=== PATIENT | male | born 1965 | race Caucasian/White ===

== ENCOUNTER 2018-06-02 22:26 | Observation (INO) | payer MEDICAID ==
--- NOTE | 2018-06-02 23:13 | ED PDOC ---
Arrival/HPI - General Chief Complaint: Alcohol Ingestion Time Seen by Provider: 06/02/18 22:35 Historian: Patient, EMS - History of Present Illness Narrative History of Present Illness (Text): 06/02/18 23:12 Deangelo Mann is a 52 year old male, whose past medical history includes hypertension and alcohol abuse, who presents to the Emergency department brought in by EMS for alcohol intoxication. Patient was found outside inebriated and patient admits to drinking alcohol tonight. Patient also reports he fell 3 days ago and sustained an abrasion to his right forehead. Patient denies any other trauma/injury, headache, dizziness, vomiting, or any other complaints. Time/Duration: Other (tonight) Symptom Onset: Gradual Symptom Course: Unchanged Activities at Onset: Light Context: Street Past Medical History - Provider Review Nursing Documentation Reviewed: Yes - Infectious Disease Hx of Infectious Diseases: None - Tetanus Immunization Tetanus Immunization: Unknown - Past Medical History Past Medical History: Unable to Obtain - Cardiac Hx Cardiac Disorders: Yes Hx Hypertension: Yes - Pulmonary Hx Respiratory Disorders: No - Neurological Hx Neurological Disorder: No - HEENT Hx HEENT Disorder: No - Renal Hx Renal Disorder: No - Endocrine/Metabolic Hx Endocrine Disorders: No - Hematological/Oncological Hx Blood Disorders: No - Integumentary Hx Dermatological Disorder: No - Musculoskeletal/Rheumatological Hx Musculoskeletal Disorders: Yes Hx Falls: Yes - Gastrointestinal Hx Gastrointestinal Disorders: No - Genitourinary/Gynecological Hx Genitourinary Disorders: No - Psychiatric Hx Psychophysiologic Disorder: No Hx Substance Use: No - Past Surgical History Past Surgical History: No Previous - Surgical History Hx Cardiac Catheterization: No Hx Coronary Stent: No - Anesthesia Hx Anesthesia: No Hx Anesthesia Reactions: No Hx Malignant Hyperthermia: No - Suicidal Assessment Feels Threatened In Home Enviroment: No Family/Social History - Physician Review Nursing Documentation Reviewed: Yes Family/Social History: Unknown Family HX Smoking Status: Current Some Days Smoker Hx Alcohol Use: Yes Hx Substance Use: No Hx Substance Use Treatment: No Allergies/Home Meds Allergies/Adverse Reactions: Allergies No Known Allergies Allergy (Verified 07/17/15 15:19) Home Medications: Home Meds Medication Instructions Recorded Confirmed Atorvastatin Calcium [Lipitor] 20 mg PO HS 03/08/15 07/17/15 Metoprolol Succinate XL [Toprol XL] 25 mg PO DAILY 03/08/15 07/17/15 Review of Systems - Physician Review All systems were reviewed & negative as marked: Yes - Review of Systems Constitutional: Normal. absent: Fevers Eyes: Normal ENT: Normal Respiratory: Normal. absent: SOB, Cough Cardiovascular: Normal. absent: Chest Pain Gastrointestinal: Normal. absent: Abdominal Pain, Diarrhea, Nausea, Vomiting Genitourinary Male: Normal. absent: Dysuria, Frequency, Hematuria, Urinary Output Changes Musculoskeletal: Normal. absent: Back Pain, Neck Pain Skin: Other (+forehead abrasion) Neurological: Normal. absent: Headache, Dizziness Endocrine: Normal Hemo/Lymphatic: Normal Psychiatric: Normal Physical Exam Vital Signs Reviewed: Yes Temperature: Afebrile Blood Pressure: Normal Pulse: Regular Respiratory Rate: Normal Appearance: Positive for: Well-Appearing, Non-Toxic, Comfortable Pain Distress: None Mental Status: Positive for: Alert and Oriented X 3 - Systems Exam Head: Present: Normocephalic, Contusion (Contusion to right forehead), Abrasion (Abrasion to right forehead) Pupils: Present: PERRL Extroacular Muscles: Present: EOMI Conjunctiva: Present: Normal Mouth: Present: Moist Mucous Membranes Neck: Present: Normal Range of Motion Respiratory/Chest: Present: Clear to Auscultation, Good Air Exchange. No: Respiratory Distress, Accessory Muscle Use Cardiovascular: Present: Regular Rate and Rhythm, Normal S1, S2. No: Murmurs Abdomen: No: Tenderness, Distention, Peritoneal Signs Back: Present: Normal Inspection Upper Extremity: Present: Normal Inspection. No: Cyanosis, Edema Lower Extremity: Present: Normal Inspection. No: Edema Neurological: Present: GCS=15, CN II-XII Intact, Speech Normal Skin: Present: Warm, Dry, Normal Color. No: Rashes Psychiatric: Present: Alert, Oriented x 3, Normal Insight, Normal Concentration Medical Decision Making ED Course and Treatment: 06/02/18 23:12 Impression: 52 year old male brought in by EMS for alcohol intoxication. Plan: -- CT Head w/o contrast -- Reassess and disposition Prior Visits: Notes and results from previous visits were reviewed. Progress Notes: 06/03/18 01:57 CT Head reviewed, shows: Comparison: 03/06/2015. Normal size of the ventricles and extra-axial spaces for the patient's age. Normal white matter tracts of the supratentorial brain. Normal basal ganglia and thalami. Normal brainstem. Normal cerebellum. There is no demonstrated extra-axial, intraparenchymal, or intraventricular hemorrhage. There are no findings of an acute ischemic infarction. Normal calvarium. There is no demonstrated fracture. Normal soft tissue structures. Mild chronic mucosal inflammatory changes of the ethmoid air cells. Normal remaining visualized paranasal sinuses. Right periorbital soft tissue contusion. IMPRESSION: Normal unenhanced CT scan of the brain. Electronically signed on Jun 03, 2018 1:45:07 AM EST by: Elie Garza M.D., Certified by ABR, MSK, Neuroradiology 06/03/18 02:22 Pt now complaining of abdominal discomfort. Labs, lipase, IV fluids, and Pepcid. 06/03/18 03:42 Pt exhibiting tremors/signs of early withdrawal. CIWA score: 4. Case discussed with Dr. Diaz and medical staff assistant, who agree with plan. Pt will go to telemetry observation for alcohol withdrawal syndrome under the hospitalist service. 06/03/18 04:45 Reviewed EKG, sinus tachycardia at [address]-segment elevations or dep ressions, no T-wave inversions, normal intervals. - Lab Interpretations I have reviewed the lab results: Yes - RAD Interpretation Shelving Supervisor: Radiologist - EKG Interpretation Interpreted by ED Physician: Yes Type: 12 lead EKG - Scribe Statement The provider has reviewed the documentation as recorded by the Dalila Ga Provider Scribe Attestation: All medical record entries made by the Scribe were at my direction and personally dictated by me. I have reviewed the chart and agree that the record accurately reflects my personal performance of the history, physical exam, medical decision making, and the department course for this patient. I have also personally directed, reviewed, and agree with the discharge instructions and disposition. Disposition/Present on Arrival - Present on Arrival Any Indicators Present on Arrival: No History of DVT/PE: No History of Uncontrolled Diabetes: No Urinary Catheter: No History of Decub. Ulcer: No History Surgical Site Infection Following: None - Disposition Have Diagnosis and Disposition been Completed?: Yes Diagnosis: Alcohol withdrawal Disposition: HOSPITALIZED Disposition Time: 03:49 Patient Problems: Current Active Problems Problem Status Onset Alcohol withdrawal Acute Condition: STABLE
[2018-06-03] MEDS ORDERED: Sodium Chloride 0.9% 1,000 ML IV STA (02:22)
[2018-06-03 02:48] LABS: ALB/GLOB RATIO 1.2 (1.1-1.8); ALBUMIN 4.3 g/dL (3.0-4.8); ALT/SGPT 46 U/L (7-56); AST/SGOT 86 U/L (17-59); BLOOD UREA NITROGEN 8 mg/dL (7-21); CALCIUM 8.7 mg/dL (8.4-10.5); GFR NON-AFRICAN AMERICAN > 60; LIPASE 113 U/L (23-300)
[2018-06-03 03:02] LABS: MEAN CELL VOLUME 87.2 fl (80.0-105.0); MEAN CORPUSCULAR HEMOGLOBIN 30.6 pg (25.0-35.0); MEAN CORPUSCULAR HGB CONC 35.1 g/dl (31.0-37.0); MEAN PLATELET VOLUME 9.6 fl (7.0-11.0); RBC 5.23 10^6/uL (3.5-6.1); WHITE BLOOD COUNT 11.1 10^3/uL (4.5-11.0)
[2018-06-03] MEDS ORDERED: Multivitamin (MVI) 10 ML, Thiamine 100 MG, Folic Acid 1 MG in Sodium Chloride 0.9% 1,00... IV ONE (04:20)
--- NOTE | 2018-06-03 04:25 | CP.PCM.HP ---
<ToanHui delongd - Last Filed: 06/03/18 07:23> History of Present Illness - History of Present Illness History of Present Illness: Daniel Joya, PGY-1 Medicine H&P Note for Dr. Diaz: CC: Etoh abuse Pt is a 52 yo M with pmhx of HTN, HLD and EtOH abuse was BIBA to the ED due to etOH intoxication. Pt states that he drank 6 cans of beer today due to an argument that he had with his . Pt also admits to having abdominal pain which started yesterday. He reports that at the worst, the pain was an 8/10 in intensity located diffusely in the lower abdomen, which has now completely resolved. Pt also reports that about 3 days ago he fell and scraped his R forearm on the ground when he fell due to his intoxication. He denies any other trauma or head He currently states that he is not having any fevers, chills, lightheadedness, dizziness, chest pain, SOB, cough, abd pain, dysuria or freque ncy. He does admit to headache, nausea and vomiting. Pmhx: HTN, HLD and EtOH abuse Pshx: Denies All: NKDA Social: 1/2ppd, denies drinking everday and states it only happens when he fights with , denies illicit drug use Fam: Non-contributory Pmd: oRbert Pharm: [facility] [place] Present on Admission - Present on Admission Any Indicators Present on Admission: No Review of Systems - Review of Systems Review of Systems: 12 point ROS negative except noted in HPI above, though pt is inebriated and is not best historian. Past Patient History - Infectious Disease Hx of Infectious Diseases: None - Tetanus Immunizations Tetanus Immunization: Unknown - Past Social History Smoking Status: Current Some Days Smoker - CARDIAC Hx Cardiac Disorders: Yes Hx Hypertension: Yes - PULMONARY Hx Respiratory Disorders: No - NEUROLOGICAL Hx Neurological Disorder: No - HEENT Hx HEENT Problems: No - RENAL Hx Chronic Kidney Disease: No - ENDOCRINE/METABOLIC Hx Endocrine Disorders: No - HEMATOLOGICAL/ONCOLOGICAL Hx Blood Disorders: No - INTEGUMENTARY Hx Dermatological Problems: No - MUSCULOSKELETAL/RHEUMATOLOGICAL Hx Musculoskeletal Disorders: Yes Hx Falls: Yes - GASTROINTESTINAL Hx Gastrointestinal Disorders: No - GENITOURINARY/GYNECOLOGICAL Hx Genitourinary Disorders: No - PSYCHIATRIC Hx Psychophysiologic Disorder: No Hx Substance Use: No - SURGICAL HISTORY Hx Cardiac Catheterization: No Hx Coronary Stent: No - ANESTHESIA Hx Anesthesia: No Hx Anesthesia Reactions: No Hx Malignant Hyperthermia: No Meds Allergies/Adverse Reactions: Allergies Allergy/AdvReac Type Severity Reaction Status Date / Time No Known Allergies Allergy Verified 07/17/15 15:19 Physical Exam - Constitutional Appears: Non-toxic, No Acute Distress - Head Exam Head Exam: ATRAUMATIC, NORMAL INSPECTION, NORMOCEPHALIC - Eye Exam Eye Exam: EOMI, Normal appearance, PERRL - Respiratory Exam Respiratory Exam: Clear to Auscultation Bilateral, NORMAL BREATHING PATTERN. absent: Accessory Muscle Use, Decreased Breath Sounds, Rales, Rhonchi, Wheezes, Respiratory Distress, Stridor - Cardiovascular Exam Cardiovascular Exam: RRR, +S1, +S2. absent: Gallop, Rubs - GI/Abdominal Exam GI & Abdominal Exam: Normal Bowel Sounds, Soft. absent: Distended, Guarding, Hernia, Tenderness - Extremities Exam Extremities exam: Positive for: normal inspection, pedal pulses present. Negative for: calf tenderness, pedal edema - Back Exam Back exam: NORMAL INSPECTION. absent: CVA tenderness (L), CVA tenderness (R) - Neurological Exam Neurological exam: Alert, Altered (pt is inebriated) - Psychiatric Exam Psychiatric exam: Normal Affect, Normal Mood - Skin Skin Exam: Dry, Normal Color, Warm Results - Vital Signs Recent Vital Signs: Last Vital Signs Temp 98.6 F 06/03/18 03:12 Pulse 105 H 06/03/18 03:12 Resp 18 06/03/18 03:12 BP 135/88 06/03/18 03:12 Pulse Ox 97 06/03/18 03:12 - Labs Result Diagrams: 06/03/18 02:05 06/03/18 02:05 Labs: Laboratory Results - last 24 hr 06/03/18 06/03/18 06/03/18 02:05 02:05 02:05 WBC 11.1 H RBC 5.23 Hgb 16.0 Hct 45.6 MCV 87.2 MCH 30.6 MCHC 35.1 RDW 13.0 Plt Count 309 MPV 9.6 Sodium 135 Potassium 4.2 Chloride 97 L Carbon Dioxide 25 Anion Gap 17 BUN 8 Creatinine 0.8 Est GFR ( Amer) > 60 Est GFR (Non-Af Amer) > 60 Random Glucose 125 H Calcium 8.7 Total Bilirubin 0.7 AST 86 H ALT 46 Alkaline Phosphatase 89 Total Protein 7.9 Albumin 4.3 Globulin 3.5 Albumin/Globulin Ratio 1.2 Lipase 113 Alcohol, Quantitative 142 H Assessment & Plan - Assessment and Plan (Free Text) Assessment: Pt is a 52 yo M with pmhx of HTN, HLD and EtOH abuse was BIBA to the ED due to etOH intoxication. Pts EtOH level noted to be 142. Has elevated LFTs consistent with EtOH abuse. Plan: 1. EtOH abuse: - Pt admits to drinking 6 cans of beer today - [facility] protocol - Ativan 1mg q2 PRN for agitation - Aspiration precautions - Multi-vitamin - Banana Bag - Folate - Thiamine - Zofran 4 q6 - Mag level 2. Increased AST likely 2/2 etOH abuse: - Etoh level: 142 - Fluids - Cont to monitor 3. Hx of HTN: - Cont home metoprolol 4. Hx of HLD: - Cont home lipitor 5. PPX: GI: Protonix IV DVT: SCDs Case seen and discussed with Dr. Emily Joya, PGY-1 <Jonna Diaz - Last Filed: 06/07/18 02:02> Results - Vital Signs Recent Vital Signs: Last Vital Signs Temp 98.2 F 06/05/18 06:00 Pulse 87 06/05/18 09:48 Resp 20 06/05/18 06:00 BP 135/91 H 06/05/18 09:48 Pulse Ox 96 06/05/18 06:00 - Labs Result Diagrams: 06/05/18 06:00 06/05/18 06:00 Attending/Attestation - Attestation I have personally seen and examined this patient.: Yes I have fully participated in the care of the patient.: Yes I have reviewed all pertinent clinical information: Yes
[2018-06-03 06:06] LABS: BASO # 0.02 K/mm3 (0.0-2.0); BASO % 0.2 % (0.0-3.0); EOS % 0.1 % (1.5-5.0); GRAN # 7.08 (1.4-6.5); GRAN % 75.4 % (50.0-68.0); HEMOGLOBIN 14.7 g/dL (14.0-18.0); LYMPH # 1.6 (1.2-3.4); LYMPH % 17.4 % (22.0-35.0); MEAN CELL VOLUME 87.5 fl (80.0-105.0); MEAN CORPUSCULAR HEMOGLOBIN 30.1 pg (25.0-35.0); MEAN CORPUSCULAR HGB CONC 34.3 g/dl (31.0-37.0); MEAN PLATELET VOLUME 9.3 fl (7.0-11.0); MONO # 0.7 (0.1-0.6); MONO % 6.9 % (1.0-6.0); RBC 4.89 10^6/uL (3.5-6.1); WHITE BLOOD COUNT 9.4 10^3/uL (4.5-11.0)
[2018-06-03] MEDS: Multivitamin With Minerals Tab PO SCH (08:30)
[2018-06-03] MEDS: Metoprolol Succinate 25 mg XL Tab PO SCH (09:09)
--- NOTE | 2018-06-03 09:23 | CARD ---
APPROVED REPORT Date of service: 06/03/2018 EKG Measurement Heart [id number] ID [id number] <Conclusion> Sinus tachycardia NSSTW changes and mildly prolonged QTc , new
--- NOTE | 2018-06-03 11:20 | CT ---
Date of service: 06/03/2018 PROCEDURE: CT HEAD WITHOUT CONTRAST. HISTORY: injury COMPARISON: Noncontrast head CT 03/06/2015. TECHNIQUE: Axial computed tomography images were obtained through the head/brain without intravenous contrast. Radiation dose: Total exam DLP = 883.86 mGy-cm. This CT exam was performed using one or more of the following dose reduction techniques: Automated exposure control, adjustment of the mA and/or kV according to patient size, and/or use of iterative reconstruction technique. FINDINGS: HEMORRHAGE: No intracranial hemorrhage. BRAIN: Normal cherry-white matter differentiation and density are appreciated throughout the cerebrum and cerebellum with the brainstem appearing unremarkable as well, once again. There is no mass effect. There is no suspicious extra-axial fluid collection and the midline brain anatomy appears diffusely unremarkable. VENTRICLES: Unremarkable. No hydrocephalus. CALVARIUM: No destructive bony lesion or displaced fracture identified including through the skullbase. PARANASAL SINUSES: Unremarkable as visualized. No significant inflammatory changes. MASTOID AIR CELLS: Unremarkable as visualized. No inflammatory changes. OTHER FINDINGS: Incidental bilateral exophthalmos identified. IMPRESSION: Stable unenhanced head CT with no acute intracranial findings appreciable. Oral brain parenchyma appears within normal limits once again. No calvarial disruption including skull base. However, incidental bilateral exophthalmos is suggested. Preliminary report provided by Quentin, 06/03/2018 1:45 a.m..
[2018-06-03] MEDS ORDERED: Alum-Mag Hydrox-Simethicone Susp (30 mL) PO PRN (13:26)
[2018-06-03 16:35] VITALS: BMI 31.7
[2018-06-03] MEDS ORDERED: Pneumococcal 23-Valent Vaccine IM ONE (16:36)
[2018-06-03] MEDS ORDERED: Influenza Vaccine 60 mcg/0.5 mL SYR (4YR UP) IM ONE (16:36)
[2018-06-03 17:06] VITALS: RESP 20
[2018-06-04 07:58] LABS: BASO # 0.03 K/mm3 (0.0-2.0); BASO % 0.4 % (0.0-3.0); EOS % 0.5 % (1.5-5.0); GRAN # 5.88 (1.4-6.5); GRAN % 75.3 % (50.0-68.0); LYMPH # 1.2 (1.2-3.4); LYMPH % 15.5 % (22.0-35.0); MEAN CELL VOLUME 89.3 fl (80.0-105.0); MEAN CORPUSCULAR HEMOGLOBIN 29.5 pg (25.0-35.0); MEAN PLATELET VOLUME 9.4 fl (7.0-11.0); MONO # 0.7 (0.1-0.6); MONO % 8.3 % (1.0-6.0); RBC 4.75 10^6/uL (3.5-6.1); WHITE BLOOD COUNT 7.8 10^3/uL (4.5-11.0)
[2018-06-04 08:21] LABS: ALB/GLOB RATIO 1.2 (1.1-1.8); ALBUMIN 3.8 g/dL (3.0-4.8); ALT/SGPT 48 U/L (7-56); AST/SGOT 59 U/L (17-59); BLOOD UREA NITROGEN 19 mg/dL (7-21); CALCIUM 8.8 mg/dL (8.4-10.5); GFR NON-AFRICAN AMERICAN > 60
[2018-06-04] MEDS: Pantoprazole 40 mg EC Tab PO SCH (08:53)
[2018-06-04] MEDS: Multivitamin With Minerals Tab PO SCH (08:53)
[2018-06-04] MEDS: Metoprolol Succinate 25 mg XL Tab PO SCH (11:59)
--- NOTE | 2018-06-04 14:55 | CP.PCM.PN ---
<Vj Tierney - Last Filed: 06/04/18 14:49> Subjective - Date & Time of Evaluation Date of Evaluation: 06/04/18 Time of Evaluation: 11:30 - Subjective Subjective: Vj Tierney PGY1 Hospital Progress Note Patient seen and examined at bedside this morning. No acute events overnight. CIWA score of 2 this morning. Slept well and tolerating diet without complaints. Denies any complaints at this time. Objective - Vital Signs/Intake and Output Vital Signs (last 24 hours): Temp Pulse Resp BP Pulse Ox 98 F 91 H 20 129/96 H 100 06/04/18 08:51 06/04/18 11:59 06/04/18 08:51 06/04/18 11:59 06/04/18 08:51 - Medications Medications: Current Medications Al Hydrox/Mg Hydrox/Simethicone (Maalox Plus 30 Ml) 30 ml PO DAILY PRN PRN Reason: Indigestion / Heartburn Atorvastatin Calcium (Lipitor) 20 mg PO HS [facility] Last Admin: 06/03/18 21:27 Dose: 20 mg Folic Acid (Folic Acid) 1 mg PO DAILY [facility] Last Admin: 06/04/18 12:02 Dose: 1 mg Lorazepam (Ativan) 1 mg IVP Q2H PRN; Protocol PRN Reason: Agitation Lorazepam (Ativan) 1 mg IVP Q6 [facility]; Protocol Last Admin: 06/04/18 11:54 Dose: 1 mg Metoprolol Succinate (Toprol Xl) 25 mg PO DAILY [facility] Last Admin: 06/04/18 11:59 Dose: 25 mg Multivitamins/Minerals (Therapeutic-M Tab) 1 tab PO 0800 [facility] Last Admin: 06/04/18 08:53 Dose: 1 tab Ondansetron HCl (Zofran Inj) 4 mg IVP Q6H PRN PRN Reason: Nausea/Vomiting Pantoprazole Sodium (Protonix Ec Tab) 40 mg PO ACB [facility] Last Admin: 06/04/18 08:53 Dose: 40 mg Thiamine HCl (Vitamin B1 Tab) 50 mg PO DAILY [facility] Last Admin: 06/04/18 13:12 Dose: 50 mg - Labs Labs: 06/04/18 07:15 06/04/18 07:15 - Additional Findings Additional findings: - Constitutional Appears: Non-toxic, No Acute Distress - Head Exam Head Exam: ATRAUMATIC, NORMAL INSPECTION, NORMOCEPHALIC - Eye Exam Eye Exam: EOMI, Normal appearance, PERRL - Respiratory Exam Respiratory Exam: Clear to Auscultation Bilateral, NORMAL BREATHING PATTERN. absent: Accessory Muscle Use, Rales, Rhonchi, Wheezes, Respiratory Distress - Cardiovascular Exam Cardiovascular Exam: RRR, +S1, +S2. absent: systolic murmurs - GI/Abdominal Exam GI & Abdominal Exam: Normal Bowel Sounds, Soft. absent: Distended, Guarding, Hernia, Tenderness - Extremities Exam Extremities exam: Positive for: normal inspection, pedal pulses present. Negative for: calf tenderness, pedal edema, extremity tremors - Neurological Exam Neurological exam: Alert and oriented x 3 - Psychiatric Exam Psychiatric exam: Normal Affect, Normal Mood - Skin Skin Exam: Dry, Normal Color, Warm Assessment and Plan - Assessment and Plan (Free Text) Assessment: Pt is a 52 yo M with pmhx of HTN, HLD and EtOH abuse was BIBA to the ED due to alcohol intoxication. Patient alcohol level noted to be 142. Has elevated LFTs consistent with alcohol abuse. Plan: Alcohol intoxication -CIWA of 2 today -likely discharge tomorrow -tapering ruma ativan down -Aspiration, fall precautions -Multi-vitamin -Folic acid -Thiamine -Zofran 4 q6 -Mag level Transaminitis - resolved -likely 2/2 alcohol use -initial alcohol level of 142 -continue to monitor Hx of HTN -continue home metoprolol Hx of HLD -continue home lipitor PPX/Diet -SCD and protonix -HHD Patient seen and case discussed with attending, Dr. Chino <Brea Chino - Last Filed: 06/12/18 13:58> Objective - Vital Signs/Intake and Output Vital Signs (last 24 hours): Temp Pulse Resp BP Pulse Ox 98.2 F 87 20 135/91 H 96 06/05/18 06:00 06/05/18 09:48 06/05/18 06:00 06/05/18 09:48 06/05/18 06:00 - Labs Labs: 06/05/18 06:00 06/05/18 06:00 Attending/Attestation - Attestation I have personally seen and examined this patient.: Yes I have fully participated in the care of the patient.: Yes I have reviewed all pertinent clinical information, including history, physical exam and plan: Yes
[2018-06-04 18:56] VITALS: O2SAT 96
[2018-06-05 07:04] VITALS: BP 135/91; PULSE 87; TEMP 98.2
[2018-06-05 07:14] LABS: ALB/GLOB RATIO 1.1 (1.1-1.8); ALBUMIN 3.7 g/dL (3.0-4.8); ALT/SGPT 55 U/L (7-56); AST/SGOT 62 U/L (17-59); BLOOD UREA NITROGEN 18 mg/dL (7-21); CALCIUM 8.6 mg/dL (8.4-10.5); GFR NON-AFRICAN AMERICAN > 60
[2018-06-05 07:15] LABS: BASO # 0.02 K/mm3 (0.0-2.0); BASO % 0.3 % (0.0-3.0); EOS # 0.2 (0.0-0.7); EOS % 2.5 % (1.5-5.0); GRAN # 4.6 (1.4-6.5); GRAN % 72.6 % (50.0-68.0); HEMOGLOBIN 13.5 g/dL (14.0-18.0); LYMPH # 1.2 (1.2-3.4); LYMPH % 18.8 % (22.0-35.0); MEAN CELL VOLUME 88.9 fl (80.0-105.0); MEAN CORPUSCULAR HEMOGLOBIN 29.5 pg (25.0-35.0); MEAN CORPUSCULAR HGB CONC 33.2 g/dl (31.0-37.0); MEAN PLATELET VOLUME 9.7 fl (7.0-11.0); MONO # 0.4 (0.1-0.6); MONO % 5.8 % (1.0-6.0); RBC 4.58 10^6/uL (3.5-6.1); RED CELL DISTRIBUTION WIDTH 12.8 % (11.5-14.5); WHITE BLOOD COUNT 6.3 10^3/uL (4.5-11.0)
[2018-06-05] MEDS: Multivitamin With Minerals Tab PO SCH (08:08)
[2018-06-05] MEDS: Pantoprazole 40 mg EC Tab PO SCH (08:08)
[2018-06-05] MEDS: Metoprolol Succinate 25 mg XL Tab PO SCH (09:48)
--- NOTE | 2018-06-05 16:00 | CP.PCM.DIS ---
<Vj Tierney - Last Filed: 06/06/18 17:03> Provider - Provider Date of Admission: 06/03/18 03:45 Attending physician: Brea Chino MD Time Spent in preparation of Discharge (in minutes): 35 Hospital Course - Lab Results Lab Results: Most Recent Lab Values WBC 6.3 10^3/uL (4.5-11.0) 06/05/18 06:00 RBC 4.58 10^6/uL (3.5-6.1) 06/05/18 06:00 Hgb 13.5 g/dL (14.0-18.0) L 06/05/18 06:00 Hct 40.7 % (42.0-52.0) L 06/05/18 06:00 MCV 88.9 fl (80.0-105.0) 06/05/18 06:00 MCH 29.5 pg (25.0-35.0) 06/05/18 06:00 MCHC 33.2 g/dl (31.0-37.0) 06/05/18 06:00 RDW 12.8 % (11.5-14.5) 06/05/18 06:00 Plt Count 219 10^3/uL (120.0-450.0) 06/05/18 06:00 MPV 9.7 fl (7.0-11.0) 06/05/18 06:00 Gran % 72.6 % (50.0-68.0) H 06/05/18 06:00 Lymph % (Auto) 18.8 % (22.0-35.0) L 06/05/18 06:00 [place] % (Auto) 5.8 % (1.0-6.0) 06/05/18 06:00 Eos % (Auto) 2.5 % (1.5-5.0) 06/05/18 06:00 Baso % (Auto) 0.3 % (0.0-3.0) 06/05/18 06:00 Gran # 4.60 (1.4-6.5) 06/05/18 06:00 Lymph # (Auto) 1.2 (1.2-3.4) 06/05/18 06:00 [place] # (Auto) 0.4 (0.1-0.6) 06/05/18 06:00 Eos # (Auto) 0.2 (0.0-0.7) 06/05/18 06:00 Baso # (Auto) 0.02 K/mm3 (0.0-2.0) 06/05/18 06:00 Sodium 135 mmol/L (132-148) 06/05/18 06:00 Potassium 3.9 mmol/L (3.6-5.0) 06/05/18 06:00 Chloride 99 mmol/L (98-107) 06/05/18 06:00 Carbon Dioxide 31 mmol/L (21-33) 06/05/18 06:00 Anion Gap 9 (10-20) L 06/05/18 06:00 BUN 18 mg/dL (7-21) 06/05/18 06:00 Creatinine 0.9 mg/dl (0.8-1.5) 06/05/18 06:00 Est GFR ( Amer) > 60 06/05/18 06:00 Est GFR (Non-Af Amer) > 60 06/05/18 06:00 Random Glucose 107 mg/dL (70-110) 06/05/18 06:00 Calcium 8.6 mg/dL (8.4-10.5) 06/05/18 06:00 Magnesium 2.3 mg/dL (1.7-2.2) H 06/05/18 06:00 Total Bilirubin 0.8 mg/dL (0.2-1.3) 06/05/18 06:00 AST 62 U/L (17-59) H 06/05/18 06:00 ALT 55 U/L (7-56) 06/05/18 06:00 Alkaline Phosphatase 75 U/L (38-126) 06/05/18 06:00 Total Protein 7.0 g/dL (5.8-8.3) 06/05/18 06:00 Albumin 3.7 g/dL (3.0-4.8) 06/05/18 06:00 Globulin 3.3 gm/dL 06/05/18 06:00 Albumin/Globulin Ratio 1.1 (1.1-1.8) 06/05/18 06:00 Lipase 113 U/L (23-300) 06/03/18 02:05 Alcohol, Quantitative 142 mg/dL (0-10) H 06/03/18 02:05 - Hospital Course Hospital Course: Upon admission, 52 yo M with pmhx of HTN, HLD and EtOH abuse was BIBA to the ED due to etOH intoxication. Pt states that he drank 6 cans of beer today due to an argument that he had with his . Pt also admits to having abdominal pain which started yesterday. He reports that at the worst, the pain was an 8/10 in intensity located diffusely in the lower abdomen, which has now completely resolved. Pt also reports that about 3 days ago he fell and scraped his R forearm on the ground when he fell due to his intoxication. During hospital course, initial alcohol level noted at 142. Patient was started started on scheduled and prn ativan, given banana bag, multivitamin, aspiration/seizure precations. Through hospital course, he was not noted to be in any alcohol withdrawal symptoms and improved without complications with CIWA score of 1 on day of discharge. He tolerated diet without complaints and did not need ativan prn more than 24 hours prior to discharge. Alcohol education counseling given to patient. Discharge Exam - Additional Findings Additional findings: - Constitutional Appears: Non-toxic, No Acute Distress - Head Exam Head Exam: ATRAUMATIC, NORMAL INSPECTION, NORMOCEPHALIC - Eye Exam Eye Exam: EOMI, Normal appearance, PERRL - Respiratory Exam Respiratory Exam: Clear to Auscultation Bilateral, NORMAL BREATHING PATTERN. absent: Accessory Muscle Use, Rales, Rhonchi, Wheezes, Respiratory Distress - Cardiovascular Exam Cardiovascular Exam: RRR, +S1, +S2. absent: systolic murmurs - GI/Abdominal Exam GI & Abdominal Exam: Normal Bowel Sounds, Soft. absent: Distended, Guarding, Hernia, Tenderness - Extremities Exam Extremities exam: Positive for: normal inspection, pedal pulses present. Negative for: calf tenderness, pedal edema, extremity tremors - Neurological Exam Neurological exam: Alert and oriented x 3 - Psychiatric Exam Psychiatric exam: Normal Affect, Normal Mood - Skin Skin Exam: Dry, Normal Color, Warm Discharge Plan - Discharge Medications Prescriptions: Atorvastatin [Lipitor] 20 mg PO DAILY #30 tab RX: Folic Acid 1 mg PO DAILY #30 tab RX: Metoprolol Succinate XL [Toprol XL] 25 mg PO DAILY #30 tab RX: Thiamine [Vitamin B1 Tab] 100 mg PO DAILY #30 tab - Follow Up Plan Condition: STABLE Disposition: HOME/ ROUTINE Instructions: Alcohol Use - When Is Drinking a Problem?, Alcohol Abuse and Alcoholism (DC) Additional Instructions: Please follow up with your primary care doctor within 5-7 days of discharge. Please stop drinking alcohol. Please continue taking your home medications. You have been given prescriptions for thiamine, folic acid, metoprolol and lipitor. Please return to the ED for any new or worsening symptoms. <Brea Chino - Last Filed: 06/12/18 13:57> Provider - Provider Date of Admission: 06/03/18 03:45 Attending physician: Brea Chino MD Hospital Course - Lab Results Lab Results: Most Recent Lab Values WBC 6.3 10^3/uL (4.5-11.0) 06/05/18 06:00 RBC 4.58 10^6/uL (3.5-6.1) 06/05/18 06:00 Hgb 13.5 g/dL (14.0-18.0) L 06/05/18 06:00 Hct 40.7 % (42.0-52.0) L 06/05/18 06:00 MCV 88.9 fl (80.0-105.0) 06/05/18 06:00 MCH 29.5 pg (25.0-35.0) 06/05/18 06:00 MCHC 33.2 g/dl (31.0-37.0) 06/05/18 06:00 RDW 12.8 % (11.5-14.5) 06/05/18 06:00 Plt Count 219 10^3/uL (120.0-450.0) 06/05/18 06:00 MPV 9.7 fl (7.0-11.0) 06/05/18 06:00 Gran % 72.6 % (50.0-68.0) H 06/05/18 06:00 Lymph % (Auto) 18.8 % (22.0-35.0) L 06/05/18 06:00 [place] % (Auto) 5.8 % (1.0-6.0) 06/05/18 06:00 Eos % (Auto) 2.5 % (1.5-5.0) 06/05/18 06:00 Baso % (Auto) 0.3 % (0.0-3.0) 06/05/18 06:00 Gran # 4.60 (1.4-6.5) 06/05/18 06:00 Lymph # (Auto) 1.2 (1.2-3.4) 06/05/18 06:00 [place] # (Auto) 0.4 (0.1-0.6) 06/05/18 06:00 Eos # (Auto) 0.2 (0.0-0.7) 06/05/18 06:00 Baso # (Auto) 0.02 K/mm3 (0.0-2.0) 06/05/18 06:00 Sodium 135 mmol/L (132-148) 06/05/18 06:00 Potassium 3.9 mmol/L (3.6-5.0) 06/05/18 06:00 Chloride 99 mmol/L (98-107) 06/05/18 06:00 Carbon Dioxide 31 mmol/L (21-33) 06/05/18 06:00 Anion Gap 9 (10-20) L 06/05/18 06:00 BUN 18 mg/dL (7-21) 06/05/18 06:00 Creatinine 0.9 mg/dl (0.8-1.5) 06/05/18 06:00 Est GFR ( Amer) > 60 06/05/18 06:00 Est GFR (Non-Af Amer) > 60 06/05/18 06:00 Random Glucose 107 mg/dL (70-110) 06/05/18 06:00 Calcium 8.6 mg/dL (8.4-10.5) 06/05/18 06:00 Magnesium 2.3 mg/dL (1.7-2.2) H 06/05/18 06:00 Total Bilirubin 0.8 mg/dL (0.2-1.3) 06/05/18 06:00 AST 62 U/L (17-59) H 06/05/18 06:00 ALT 55 U/L (7-56) 06/05/18 06:00 Alkaline Phosphatase 75 U/L (38-126) 06/05/18 06:00 Total Protein 7.0 g/dL (5.8-8.3) 06/05/18 06:00 Albumin 3.7 g/dL (3.0-4.8) 06/05/18 06:00 Globulin 3.3 gm/dL 06/05/18 06:00 Albumin/Globulin Ratio 1.1 (1.1-1.8) 06/05/18 06:00 Lipase 113 U/L (23-300) 06/03/18 02:05 Alcohol, Quantitative 142 mg/dL (0-10) H 06/03/18 02:05 Attending/Attestation - Attestation I have personally seen and examined this patient.: Yes I have fully participated in the care of the patient.: Yes I have reviewed all pertinent clinical information, including history, physical exam and plan: Yes Notes (Text): 06/12/18 13:54 Medical record note made by the resident after discussion with my direction and input after the patient was personally seen and examined by me. I have reviewed the chart and agree that the record accurately reflects by personal performance of the history, physical exam, data review, and medical decision-making, in the course for the patient. I have also personally directed the plan of care. 52 yo M with pmhx of HTN, HLD and EtOH abuse was admitted with alcohol intoxication. He was monitored in the hospital and was treated for alcohol withdrawal. Patient alcohol withdrawal are improved. He is alert,awake and oriented.He is tolerating food and is ambulatory. Issue of ongoing alcohol abuse was discussed in detail with him.
== END 2018-06-05 15:56 | disposition home or self-care (01) ==
LOC: ED 22:26 → ERH 06-03 03:45 → 3RSO 06-03 15:30
PROVIDERS: ADMIT Internal Medicine; ATTEND Internal Medicine
DX: F10.239 Alcohol dependence with withdrawal, unspecified (principal); F10.229 Alcohol dependence with intoxication, unspecified; I10 Essential (primary) hypertension; E78.5 Hyperlipidemia, unspecified; W19.XXXA Unspecified fall, initial encounter; Z87.891 Personal history of nicotine dependence; Y90.6 Blood alcohol level of 120-199 mg/100 ml
CPT/HCPCS: 36415; 70450; 80053; 80320; 83690; 83735; 85025; 85027; 93005; 96361; 96365; 96366; 96375; 96376; 99283; C9113; G0378; J2060; J3411; J7030